=== PATIENT | male | born 1970 | race Caucasian/White ===

== ENCOUNTER 2022-03-02 09:39 | Emergency (ER) | payer BC ==
--- OUTSIDE RECORDS SUMMARY | 2022-03-02 09:43 | XMS REPORT | Continuity of Care Document ---
:1970 Author Organization [facility] t Address [address] [place] [address] Care Team Providers Name Role Phone Jimbo Olvera MD Primary Care Physician Kimberly JIMENEZ Attending Clinician Unavailable Aditya Sanchez MD Attending Clinician Jake Bazzi MD Attending Clinician Chelsey MCCLURE Attending Clinician Lui BOBBY Attending Clinician Unavailable Jose C JIMENEZ Attending Clinician Unavailable Kris Thomas MD Attending Clinician Tika MCCLURE, NDustin Attending Clinician Michael MCCLURE, Tamiko Attending Clinician Jimbo Olvera MD Attending Clinician ED Admitting Clinician Unavailable TIKA Admitting Clinician Unavailable Payers Payer Name Policy Type Policy Number Effective Date Expiration Date S ource Problems Condition Condition Condition Status Onset Resolution Last Treating Co mments Source Name Details Category Date Date Treatment Clinician Date Colon Colon Disease Active Overview: Method i cancer cancer [address] screening screening 00:00: g of this H ospita 00 note l might be different from the original. Added automatic ally from request for surgery [id number] Gastroesop Gastroesop Disease Active Overview : Methodi hageal hageal 8-[address] reflux reflux 00:00: g of this Hospita disease disease 00 note l without without might be esophagiti esophagiti different s s from the original. Added automatic ally from request for surgery [id number] DKA DKA Disease Active 2021-0 Methodi (diabetic (diabetic 3-30 st ketoacidos ketoacidos 00:00: Ho spita es) es) 00 l COVID-19 COVID-19 Disease Active Metho di virus virus 3 st detected detected 00:00: Hospit a 00 l Metabolic Metabolic Disease Active Met hodi acidosis acidosis 3 st 00:00: Hospita 00 l S/P S/P Disease Active [facility] arthroscop arthroscop 2 st y of left y of left 00:00: Hosp [facility] knee knee 00 l Follow-up Follow-up Disease Active Met hodi examinatio examinatio 2 st n after n after 00:00: Hospita orthopedic orthopedic 00 l surgery surgery Obesity Obesity Disease Active Methodi (BMI (BMI 01-02 st 31.16) 31.16) 00:00: Hospita 00 l Acute pain Acute pain Disease Active M ethodi of left of left 130 st knee knee 00:00: Hospita 00 l Acute Acute Disease Active Methodi internal internal [address] derangemen derangemen 00:00: Ho spita t of left t of left 00 l knee knee Acute Acute Disease Active Methodi medial medial 1 meniscus meniscus 00:00: Hospit a tear of tear of 00 l left knee left knee Rotator Rotator Disease Active Methodi cuff cuff 8 st tendonitis tendonitis 00:00: Ho spita , right , right 00 l Adhesive Adhesive Disease Active Metho di capsulitis capsulitis 07-03 st of right of right 00:00: Hospit a shoulder shoulder 00 l Allergies, Adverse Reactions, Alerts Allergy Allergy Status Severity Reaction(s) Onset Inactive Treating Comm ents Source Name Type Date Date Clinician [place] Active Rash Method i tin ty to 8-13 st adverse 00:00: Hospita reaction 00 l s to drug Family History Family Member Diagnosis Comments Start Date Stop Date Source Natural father [facility] Natural mother COPD [facility] mother Cancer [facility] mother Diabetes [facility] Social History Social Habit Start Date Stop Date Quantity Comments Source History of tobacco Cigarette Smoker [facility] use Hospital History SDOH [facility] Alcohol Frequency Hospita l History SDOH [facility] Alcohol Std Drinks Hospit al History SDOH [facility] Alcohol Binge Hospital Alcohol intake 2021-09-18 2021-09-18 Current drinker [facility] 00:00:00 00:00:00 of alcohol Hospital (finding) Alcohol Comment 2018-12-21 2018-12-21 socially [facility] 00:00:00 00:00:00 Hospital Cigarettes smoked 2018-07-03 2018-07-[address] current (pack per 00:00:00 00:00:00 Hospita l day) - Reported Cigarette 2018-07-03 2018-07-03 [facility] pack-years 00:00:00 00:00:00 Hospital Tobacco use and 2018-07-03 2018-07-03 Former smokeless Met hodist exposure 00:00:00 00:00:00 tobacco user Hospital Sex Assigned At [birth year] [facility] 00:00:00 00:00:00 Hospital Smoking Status Start Date Stop Date Source Ex-smoker 2018-07-03 00:00:00 2018-07-03 00:00:00 [facility] Medications Ordered Filled Start Stop Current Ordering Indication Dosage Frequency Signature Comments Components Source Medication Medication Date Date Medication? Clinician (SIG) Name Name fexofenadin 2020-11 Yes 60mg QD Take 60 mg Methodi e (ROSE) 1-[address] 60 MG 08:27: daily. Hospita tablet 50 l omeprazole 2020-11 Yes TAKE 1 Metho di (PriLOSEC) 1-[address] 40 MG 08:27: MOUTH Hospita capsule 50 EVERY DAY l rosuvastati 2020-11 Yes TAKE 1 Meth corky n (CRESTOR) 1-[address] 5 mg tablet 08:27: MOUTH Hospi ta 50 EVERY DAY l insulin 2020-11 Yes as Methodi GLARGINE -[address] (Lantus 08:27: Hospita Solostar 50 l U-100 Insulin) 100 unit/mL injection (pen) MULTIVITAMI 2020-11 Yes Method i N ORAL -12 st 08:27: Hospita 50 l omega 2020-11 Yes 1 capsule Methodi 3-dha-epa-f 1-12 st carmen oil 08:27: Hospita (Fish Oil) 50 l 1,000 mg (120 mg-180 mg) capsule polyethylen 2020- No 3{packe Take 3 Methodi e glycol 06-16 t} packets by st (Plenvu) 00:00: 04:59 mouth once Ho spita 140-9-5.2 00 :00 for 1 l gram powder dose. in packet, sequential solution (RESTRICTED ) insulin Yes as Methodi LISPRO 4-[address] (HumaLOG 00:00: Hospita KwikPen 00 l Insulin) 200 unit/mL (3 mL) insulin pen subcutaneou s pen insulin 2020- No 20U QD Inject 20 Meth corky GLARGINE 3-30 05-[address] (Lantus 00:00: 04:59 under the Hosp [facility]ney Solostar 00 :00 skin l U-100 nightly Insulin) for 60 100 unit/mL days. injection (pen) TRULICITY 2020- No Methodi 0.75 mg/0.5 118 03-30 st mL pen 00:00: 00:00 Hospita injector 00 :00 l INVOKANA 2020- No Methodi 300 mg 07-0230 st tablet 00:00: 00:00 Hospita 00 :00 l omeprazole 2020- No Method i (PriLOSEC) 06-25 st 40 MG 00:00: 00:00 Hospita capsule 00 :00 l naproxen 2020- No Methodi (NAPROSYN) 06-12 st 500 MG 00:00: 00:00 Hospita tablet 00 :00 l metFORMIN Yes 1000mg Q.5D Take 1,000 Methodi (GLUCOPHAGE 8-[address] ) 1,000 mg 00:00: mouth 2 Hosp [facility] tablet 00 (two) l times a day with meals. Vital Signs Vital Name Observation Time Observation Value Comments Source Systolic blood 2021-09-17 14:03:00 116 mm[Hg] Method [facility] Hospital pressure Diastolic blood 2021-09-17 14:03:00 68 mm[Hg] [facility] Hospital pressure Heart rate 2021-09-17 14:03:00 67 /min [facility] Hospital Respiratory rate 2021-09-17 14:03:00 24 /min [facility] Hospital Oxygen saturation in 2021-09-17 14:03:00 98 /min [facility] Arterial blood by Pulse oximetry Body temperature 2021-09-17 13:48:00 36.39 Eileen Meth [facility] Body height 2021-09-17 12:48:00 175.3 cm [facility] Body weight 2021-09-17 12:48:00 99.791 kg [facility] BMI 2021-09-17 12:48:00 32.49 kg/m2 [facility] Procedures Procedure Date / Time Performing Source Performed Clinician SURGICAL PATHOLOGY REQUEST 2021-09-17 Bereket Sanchez Dc [facility]odist 15:58:00 Hospital COLONOSCOPY 2021-09-17 Bereket Sanchez [facility] 13:27:00 Hospital ESOPHAGOGASTRODUODENOSCOPY (EGD) 2021-09-17 Bereket Sanchez [facility] 13:27:00 [facility] POC GLUCOSE 2021-09-17 Bereket Sanchez [facility] 12:55:00 Hospital COVID-19 QUALITATIVE RT-PCR 2021-09-15 Bereket Sanchez [facility]ist 15:07:00 Hospital POC GLUCOSE 2021-02-02 Altaie, Saif KDustin [facility] 16:00:00 Hospital POC GLUCOSE 2021-02-02 Altaie, Saif KDustin [facility] 13:04:00 Hospital POC GLUCOSE 2021-02-02 Altaie, Saif KDustin [facility] 01:31:00 Hospital POC GLUCOSE 2021-02-01 Altaie, Saif KDustin [facility] 22:03:00 Hospital POC GLUCOSE 2021-02-01 Altaie, Saif KDustin [facility] 16:05:00 Hospital POC GLUCOSE 2021-02-01 Alte, Saif KDustin [facility] 12:35:00 Hospital HC COMPLETE BLD COUNT W/AUTO DIFF 2021-02-01 Katie Isidro 09:00:00 [facility] COMPREHENSIVE METABOLIC PANEL 2021-02-01 Ktaie Isidro 09:00:00 [facility] MAGNESIUM LEVEL 2021-02-01 Katie Isidro 09:00:00 [facility] PHOSPHORUS LEVEL 2021-02-01 Katie Isidro 09:00:00 [facility] IONIZED CALCIUM 2021-02-01 Katie Isidro [facility] 09:00:00 [facility] ESTIMATED GFR 2021-02-01 Katie Isidro [facility] 09:00:00 [facility] POC GLUCOSE 2021-01-31 Leah Rodriguez [facility] 22:05:00 Hospital POC GLUCOSE 2021-01-31 eCsar Villela 19:33:00 N. Hospital BASIC METABOLIC PANEL 2021-01-31 Katie Isidro [facility] 19:10:00 [facility] ESTIMATED GFR 2021-01-31 Katie Isidro [facility] 19:10:00 [facility] POC GLUCOSE 2021-01-31 Cesar Villela 18:16:00 . [facility] POC GLUCOSE 2021-01-31 Cesar Villela 17:05:00 . [facility] POC GLUCOSE 2021-01-31 Cesar Villela 16:32:00 . [facility] POC GLUCOSE 2021-01-31 Cesar Villela 15:44:00 . [facility] COVID-19 ANTI-SPIKE IGG ANTIBODY 2021-01-31 Katie Isidro [facility] TITER 14:55:00 [facility] DKA ELECTROLYTES AND GLUCOSE TEST 2021-01-31 Yanci Thomas 14:10:00 [facility] POC GLUCOSE 2021-01-31 Leah Rodriguez [facility] 13:49:00 Hospital POC GLUCOSE 2021-01-31 Leah Rodriguez [facility] 12:26:00 Hospital POC GLUCOSE 2021-01-31 Cesar Villela 10:58:00 . [facility] VENOUS BLOOD GAS 2021-01-31 Michelle Kimbrough [facility] 10:50:00 [facility] POC GLUCOSE 2021-01-31 Cesar Villela 09:57:00 . [facility] DKA ELECTROLYTES AND GLUCOSE TEST 2021-01-31 Yanci Thomas 09:00:00 [facility] POC GLUCOSE 2021-01-31 Cesar Villela 08:07:00 [facility] DKA ELECTROLYTES AND GLUCOSE TEST 2021-01-31 Yanci Thomas 07:08:00 [facility] POC GLUCOSE 2021-01-31 Cesar Villela 06:33:00 . Hospital POC GLUCOSE 2021-01-31 Cesar V[place]la 05:27:00 Hospital LACTIC ACID LEVEL, SEPSIS - NOW 2021-01-31 Yanci Thomas AND REPEAT 2X EVERY 3 HOURS 05:17:00 [facility] ital DKA ELECTROLYTES AND GLUCOSE TEST 2021-01-31 Yanci Thomas 05:17:00 [facility] COMPREHENSIVE METABOLIC PANEL 2021-01-31 Michelle Kimbrough thodist 05:17:00 [facility] ESTIMATED GFR 2021-01-31 iMchelle Kimbrough 05:17:00 [facility] MAGNESIUM LEVEL 2021-01-31 Katie Isidro 05:17:00 [facility] POC GLUCOSE 2021-01-31 Cesar Villela 04:29:00 N. Hospital TROPONIN 2021-01-31 Alden Rivera 04:24:00 [facility] DKA ELECTROLYTES AND GLUCOSE TEST 2021-01-31 Yanci Thomas 04:24:00 [facility] COVID-19 QUALITATIVE RT-PCR 2021-01-31 Inessa Thomas 04:07:00 [facility] URINE CULTURE 2021-01-31 Sukhjinder Ribera 04:06:00 [facility] URINALYSIS SCREEN AND MICROSCOPY, 2021-01-31 Sukhjinder Ribera WITH REFLEX TO CULTURE 04:06:00 [facility] POC GLUCOSE 2021-01-31 Cesar Villela 03:14:00 Hospital LIPID PANEL 2021-01-31 Yanci Thomas 02:15:00 [facility] LACTIC ACID LEVEL, SEPSIS - NOW 2021-01-31 Yanci Thomas AND REPEAT 2X EVERY 3 HOURS 02:15:00 [facility] ital DKA ELECTROLYTES AND GLUCOSE TEST 2021-01-31 Yanci Thomas 02:15:00 [facility] HEMOGLOBIN A1C 2021-01-31 Yanci Thomas 02:15:00 [facility] MAGNESIUM LEVEL 2021-01-31 Yanci Thomas 02:15:00 [facility] PHOSPHORUS LEVEL 2021-01-31 Yanci Thomas 02:15:00 [facility] BLOOD CULTURE, AEROBIC & ANAEROBIC 2021-01-31 Yanci Thomas 02:00:00 [facility] TROPONIN 2021-01-31 Nicole, Alden Pete 02:00:00 [facility] LACTIC ACID LEVEL, SEPSIS - NOW 2021-01-31 Yanci Thomas AND REPEAT 2X EVERY 3 HOURS 02:00:00 [facility] ital POC GLUCOSE 2021-01-31 Leah Rodriguez 02:00:00 Hospital ARTERIAL BLOOD GAS 2021-01-31 Amadeo Herron 01:38:00 Hospital BLOOD CULTURE, AEROBIC & ANAEROBIC 2021-01-31 Yanci Thomas 01:19:00 [facility] CT HEAD WO CONTRAST 2021-01-31 DalyoaYanci 00:11:16 [facility] ECG ED PRELIMINARY INTERPRETATION 2021-01-31 Yanci Thomas 00:05:30 [facility] XR CHEST 1 VW PORTABLE 2021-01-30 Nicole, Alden Pete 23:12:21 [facility] COMPREHENSIVE METABOLIC PANEL 2021-01-30 Alden Rivera thodist 21:52:00 [facility] HC COMPLETE BLD COUNT W/AUTO DIFF 2021-01-30 Nicole, Alden Pete 21:52:00 [facility] LIPASE LEVEL 2021-01-30 Nicole, Alden Pete 21:52:00 [facility] PROTHROMBIN TIME WITH INR 2021-01-30 Nicole, Alden Calderon ist 21:52:00 [facility] PARTIAL THROMBOPLASTIN TIME (PTT) 2021-01-30 Nicole, Alden Pete 21:52:00 [facility] B NATRIURETIC PEPTIDE 2021-01-30 Nicole, Alden Pete 21:52:00 [facility] TROPONIN 2021-01-30 Nicole, Alden Pete 21:52:00 [facility] ESTIMATED GFR 2021-01-30 Nicole, Alden Pete 21:52:00 [facility] BETA HYDROXYBUTYRATE 2021-01-30 Sukhjinder Ribera 21:52:00 [facility] ECG 12-LEAD 2021-01-30 Alden Rivera [facility] [facility] 21:46:04 [facility] XR CHEST 2 VW 2021-01-29 Gilberto Olvera 14:37:13 [facility] Plan of Care Planned Activity Planned Date Details Comments Source Future Scheduled 2021-12-07 DIABETES: RETINAL EYE [facility] Test 23:20:02 EXAM [code = DIABETES: RETINAL EYE EXAM] Future Scheduled 2021-12-07 DIABETIC FOOT EXAM [facility] Test 23:20:02 [code = DIABETIC FOOT EXAM] Future Scheduled 2021-12-07 URINE MICROALBUMIN [facility] Test 23:20:02 [code = URINE MICROALBUMIN] Future Scheduled 2021-12-07 Hepatitis C screening [facility] Test 23:20:02 (procedure) [code = 294336079] Future Scheduled 2021-12-[address] [facility] Test 23:20:02 [code = COLONOSCOPY SCREENING] Future Scheduled 2021-12-07 SHINGLES VACCINES (#1) [facility] Test 23:20:02 [code = SHINGLES VACCINES (#1)] Future Scheduled 2021-12-07 INFLUENZA VACCINE [facility] Test 23:20:02 [code = INFLUENZA VACCINE] Future Scheduled 2021-12-07 COVID-19 VACCINE (3 - Me [facility] Test 23:20:02 Booster for Moderna series) [code = COVID-19 VACCINE (3 - Booster for Moderna series)] Encounters Start End Encounter Admission Attending Care Care Encounter Source Date/Time Date/Time Type Type Clinicians Facility Department ID 2021-09-20 2021-09-20 Telephone Kimberly, 1.2.840.1 [id number] Methodi 00:00:00 00:00:[address] 3.430.2.7 Hospit a .3.370915 l .8 2021-09-17 2021-09-17 Surgery Sanchez, 1.2.840.1 [id number] Methodi 07:30:00 08:15:[address] [place] [address] Hasan 3.430.2.7 Hospit a .3.092871 l .8 2021-09-17 2021-09-17 [facility], 1.2.840.1 [id number] Methodi 06:22:00 08:15:00 Encounter [place] [address]94.1.[address] Aditya 3.430.2.7 Hospit a .3.218022 l .8 2021-09-17 2021-09-17 Anesthesia Rosemary Bazzi 1.2.840.1 [id number] Methodi 07:27:00 07:49:00 Event Josue Barbosa 69901.1.[address] 3.430.2.7 Hospit a .3.600976 l .8 2021-09-17 2021-09-17 Travel 1.2.840.1 1.2.458.367 [id number] Methodi 00:00:00 00:00:[address] 3.430.2.7 0.2.7.3.698 Ho spita .3.108623 084.8 l .8 2021-09-15 2021-09-15 Telephone Sanchez, 1.2.840.1 [id number] Methodi 00:00:00 00:00:[address] [place] [address] Aditya 3.430.2.7 Hospit a .3.292551 l .8 2021-09-15 2021-09-15 Travel 1.2.840.1 1.2.421.605 [id number] Methodi 00:00:00 00:00:[address] 3.430.2.7 0.2.7.3.698 Ho spita .3.996128 084.8 l .8 2021-08-30 2021-08-30 Prep for Lui, 1.2.840.1 [id number] Methodi 00:00:00 00:00:00 Surgery [place] 66963.1.[address] 3.430.2.7 Hospit a .3.238547 l .8 2021-08-30 2021-08-30 Travel 1.2.840.1 1.2.714.648 0417 [id number] Methodi 00:00:00 00:00:[address] 3.430.2.7 0.2.7.3.698 Ho spita .3.377253 084.8 l .8 2021-08-05 2021-08-05 Telephone Kimberly, 1.2.840.1 [id number] Methodi 00:00:00 00:00:[address] 3.430.2.7 Hospit a .3.347660 l .8 2021-07-08 2021-07-08 Telephone Kimberly, 1.2.840.1 [id number] 2099 [id number] Methodi 00:00:00 00:00:[address] 3.430.2.7 Hospit a .3.801727 l .8 2021-06-16 2021-06-16 Office Sanchez, 1.2.840.1 [id number] Methodi 08:46:09 09:16:09 Visit [place] [address]16.1.[address] Hasan 3.430.2.7 Hospit a .3.141796 l .8 2021-06-16 2021-06-16 Prep for Harris, 1.2.840.1 [id number] Methodi 00:00:00 00:00:00 Surgery Angie 92025.1.[address] 3.430.2.7 Hospit a .3.698169 l .8 2021-06-16 2021-06-16 Documentat Harris, 1.2.840.1 [id number] Methodi 00:00:00 00:00:00 ion Angie 10924.1.[address] 3.430.2.7 Hospit a .3.727377 l .8 2021-06-16 2021-06-16 Travel 1.2.840.1 1.2.483.678 0444 [id number] Methodi 00:00:00 00:00:[address] 3.430.2.7 0.2.7.3.698 Ho spita .3.711482 084.8 l .8 2021-05-19 2021-05-19 Transcribe Sanchez, 1.2.840.1 [id number] [id number] Methodi 00:00:00 00:00:00 Orders [place] 43936.1.[address] Hasan 3.430.2.7 Hospit a .3.730033 l .8 2021-05-19 2021-05-19 Telephone Woodall, 1.2.840.1 [id number] Methodi 00:00:00 00:00:[address] 3.430.2.7 Hospit a .3.074806 l .8 2021-01-30 2021-02-02 [facility] .1 [id number] Methodi 16:30:00 14:08:00 Encounter Cesar Villela N. 73747.1.[address] Altdebora, Leah K. 3.430.2.7 Hospita .3.575716 l .8 2021-01-30 2021-01-30 Travel 1.2.840.1 1.2.515.654 [id number] [id number] Methodi 00:00:00 00:00:[address] 3.430.2.7 0.2.7.3.698 Ho spita .3.958668 084.8 l .8 2021-01-28 2021-01-28 Travel 1.2.840.1 1.2.147.182 1777 [id number] Methodi 00:00:00 00:00:[address] 3.430.2.7 0.2.7.3.698 Ho spita .3.758670 084.8 l .8 2021-01-28 2021-01-28 Transcribe Wade, 1.2.840.1 [id number] Methodi 00:00:00 00:00:00 Orders Gilberto 05513.1.[address] Choi 3.430.2.7 Hospit a .3.760898 l .8 Results Test Description Test Time Test Comments Results Result Comments Source Surgical pathology request 2021-09-20 16:33:48 Test Item Value Reference Range Interpretation Comme nts Case number (test code = 0534517) [id number] Surgical pathology report (test code = See link below for PDF Lab R eport 2253) Result status (test code = 7473445) This is Final Report for [id number] [facility] [id number] 12:58:00 Test Item Value Reference Range Interpretation Comments POC glucose (test code 197 mg/dL 65-100 H Opera tor Name: = [id number]) Helen DeBarge Device ID: [id number] Lab Interpretation Abnormal (test code = 27123-2) [facility] 12 [id number] 03:36:50 Test Item Value Reference Range Interpretation Comments Ventricular rate (test code = 253) Atrial rate (test code = 255) CO interval (test code = 266) QRSD interval (test code = 260) QT interval (test code = 264) QTC interval (test code = 265) P axis 1 (test code = 267) QRS axis 1 (test code = 268) T wave axis (test code = 270) EKG impression (test Sinus tachycardia-Left code = 273) anterior fascicular block-Septal infarct (cited on or before 21-DEC-2018)-Abnormal ECG-In automated comparison with ECG of 21-DEC-2018 15:17,-No significant change was found- [facility] electrolytes and glucose [id number] 14:25:24 Test Item Value Reference Range Interpretation Comments Sodium, whole blood See_Comment L [Automa shorty message] (test code = 2947-0) The s tem which generated this result transmit shorty reference range : 135 - 148 mEq/L. Th e reference range was not used to interpret this result as normal/abnormal . Potassium, whole blood See_Comment [Aut omated message] (test code = 6298-4) The sys tem which generated this result transmit shorty reference range : 3.5 - 5.0 mEq/L. Th e reference range was not used to interpret this result as normal/abnormal . Chloride, whole blood See_Comment [Auto mated message] (test code = 2069-3) The sys tem which generated this result transmit shorty reference range : 98 - 112 mEq/L. Th e reference range was not used to interpret this result as normal/abnormal . CO2 calculated, whole See_Comment L [Auto mated message] blood (test code = The syste m which ) generated this result transmit shorty reference range : 24 - 31 mEq/L. The reference range was not used to interpret this result as normal/abnormal . Anion gap, whole blood See_Comment [Aut omated message] (test code = 29649-7) The sy stem which generated this result transmit shorty reference range : 5 - 20 mEq/L. The reference range was not used to interpret this result as normal/abnormal . Glucose, whole blood 161 mg/dL 65-99 H (test code = 2339-0) Lab Interpretation (test Abnormal code = 33586-9) [id number] 05:11:13 Test Item Value Reference Range Interpretation Comments Urine culture (test SEE COMMENT Bacteriu moreno screen code = 4781839) negative. [facility] ED Preliminary Interpretation - Not an [id number] 00:05:30 Test Item Value Reference Range Interpretation Comments BELLA (test code = BELLA) Vic Thomas MD 01/31/2021 3:23 [facility] ED Preliminary Interpretation - Not an OrderPerformed by: Vic Thomas MDAuthorized by: Vic Thomas MD ECG reviewed by ED Physician in the absence of a outcome analyst: yes Interpretation: Interpretation: abnormal Rate: ECG rate: 121 ECG rate assessment: tachycardic Rhythm: Rhythm: sinus tachycardia Ectopy: Ectopy: none QRS: QRS axis: Left QRS intervals: NormalConduction: Conduction: abnormal Abnormal conduction: non-specific intraventricular conduction delay ST segments: ST segments: NormalT waves: T waves: normal Lab Interpretation Abnormal (test code = 57070-2) [facility]
[2022-03-02] MEDS ORDERED: KETOROLAC 30 MG/ML INJ ONE (10:04)
--- NOTE | 2022-03-02 11:08 | RAD REPORT ---
EXAM DESCRIPTION: RAD - Foot Left 3 View - 03/02/2022 10:56 am CLINICAL HISTORY: foot pain, calcaneal COMPARISON: No comparisons FINDINGS/IMPRESSION: No acute fracture. No malalignment. Calcaneal spurring.
--- NOTE | 2022-03-02 11:18 | EDPHYS ---
Physician Documentation [facility] Name: Alec Link Age: 52 yrs Sex: Male : 1970 Arrival Date: 03/02/2022 Time: 09:44 Bed 5 Private MD: ED Physician Yousif Moreno HPI: 03/02 09:50 This 52 yrs old Male presents to ER via Ambulatory with complaints of Foot Injury. jmm 09:50 The patient presents with pain. Onset: The symptoms/episode began/occurred gradually, jmm last night. Modifying factors: The symptoms are alleviated by nothing. the symptoms are aggravated by movement, weight bearing. Associated signs and symptoms: Pertinent negatives fever. The patient has not experienced similar symptoms in the past. Historical: - Allergies: 09:55 No Known Allergies; ss - PMHx: 09:55 Diabetes mellitus; ss - PSHx: 09:55 ear sx; ss ROS: 09:50 Constitutional: Negative for fever, chills, and weight loss, Cardiovascular: Negative jmm for chest pain, palpitations, and edema, Respiratory: Negative for shortness of breath, cough, wheezing, and pleuritic chest pain, Abdomen/GI: Negative for abdominal pain, nausea, vomiting, diarrhea, and constipation. 09:50 MS/extremity: Positive for pain. 09:50 All other systems are negative. Exam: 09:50 Constitutional: This is a well developed, well nourished patient who is awake, alert, jmm and in no acute distress. Head/Face: atraumatic. Eyes: EOMI, no conjunctival erythema appreciated ENT: Moist Mucus Membranes Neck: Trachea midline, Supple Chest/axilla: Normal chest wall appearance and motion. Cardiovascular: Regular rate and rhythm. No edema appreciated Respiratory: Normal respirations, no respiratory distress appreciated Abdomen/GI: Non distended, soft Back: Normal ROM Skin: General appearance color normal 09:50 Musculoskeletal/extremity: left calcaneal pain on palpation, compartments are soft, full dorsalis pulse, NVI. 09:50 Skin: Appearance: Color: normal in color. 09:50 Neuro: Motor: is normal. 09:50 Psych: Behavior/mood is pleasant, cooperative. Vital Signs: 09:54 BP 161 / 92; Pulse 72; Resp 16; Temp 98.4(O); Pulse Ox 100% on R/A; Weight 104.33 kg; ss Height 5 ft. 9 in. (175.26 cm); Pain 0/10; 10:05 BP 179 / 89; Pulse 68; Resp 18; Pulse Ox 100% on R/A; kj1 10:53 BP 154 / 78; Pulse 65; Resp 16; Pulse Ox 99% ; vg1 09:54 Body Mass Index 33.96 (104.33 kg, 175.26 cm) ss 09:54 At worse a 10/10 when standing ss MDM: 09:50 Patient medically screened. [facility] 11:16 Data reviewed: vital signs, nurses notes. Counseling: I had a detailed discussion with [facility] the patient and/or guardian regarding: the historical points, exam findings, and any diagnostic results supporting the discharge/admit diagnosis, radiology results, the need for outpatient follow up, to return to the emergency department if symptoms worsen or persist or if there are any questions or concerns that arise at home. 03/02 09:53 Order name: Foot Left 3 View XRAY; Complete Time: 11:10 [facility] Administered Medications: 10:05 Drug: Ketorolac 30 mg Route: IM; Site: right deltoid; vg1 10:52 Follow up: Response: No adverse reaction vg1 Disposition: 13:25 Co-signature as Attending Physician, Yousif Moreno MD I agree with the assessment and kdr plan of care. Disposition Summary: 03/02/22 11:17 Discharge Ordered Location: Home [facility] Condition: Stable [facility] Diagnosis - Calcaneal spur, left foot [facility] Followup: [facility] - With: Cuong Laws DPM - When: 2 - 3 days - Reason: Recheck today's complaints, Continuance of care, Re-evaluation by your physician Discharge Instructions: - Discharge Summary Sheet [facility] - Heel Spur [facility] Forms: - Medication Reconciliation Form [facility] - Thank You Letter [facility] - Antibiotic Education [facility] - Prescription Opioid Use [facility] Prescriptions: - Diclofenac Sodium 75 mg Oral Tablet Sustained Release - take 1 tablet by ORAL route 2 times per day; 30 tablet; Refills: 0, Product [facility] Selection Permitted Signatures: Dispatcher [employer] Yousif Ferrara MD MD kdr Mickail, Joel, PA PA Nazanin Cassidy RN RN Xenia Carrasco RN RN vg1 Corrections: (The following items were deleted from the chart) 11:38 11:10 Kris cotton. jessica vg1
--- NOTE | 2022-03-02 11:18 | ER ---
Nurse's Notes [facility] Name: Alec Link Age: 52 yrs Sex: Male : 1970 Arrival Date: 03/02/2022 Time: 09:44 Bed 5 Private MD: Diagnosis: Calcaneal spur, left foot Presentation: 03/02 09:54 Chief complaint: Patient states: Pain to bottom of L heel that began last night, is ss worse this morning. Denies injury. Coronavirus screen: Client denies travel out of the [place] in the last 14 days. Ebola Screen: Patient denies exposure to infectious person. Patient denies travel to an Ebola-affected area in the 21 days before illness onset. Initial Sepsis Screen: Does the patient meet any 2 criteria? No. Patient's initial sepsis screen is negative. Does the patient have a suspected source of infection? No. Patient's initial sepsis screen is negative. Risk Assessment: Do you want to hurt yourself or someone else? Patient reports no desire to harm self or others. Onset of symptoms was March 01, 2022. 09:54 Method Of Arrival: Ambulatory ss 09:54 Acuity: TONE 4 ss Historical: - Allergies: 09:55 No Known Allergies; ss - PMHx: 09:55 Diabetes mellitus; ss - PSHx: 09:55 ear sx; ss Screenin:55 Abuse screen: Denies threats or abuse. Nutritional screening: No deficits noted. vg1 Tuberculosis screening: No symptoms or risk factors identified. Fall Risk No fall in past 12 months (0 pts). No secondary diagnosis (0 pts). No IV (0 pts). Ambulatory Aid- None/Bed Rest/Nurse Assist (0 pts). Gait- Normal/Bed Rest/Wheelchair (0 pts) Mental Status- Oriented to own ability (0 pts). Total Aldana Fall Scale indicates No Risk (0-24 pts). Assessment: 09:55 General: Appears uncomfortable, Behavior is calm, cooperative. Pain: Complains of pain vg1 in left foot Pain currently is 0 out of 10 on a pain scale. at worst was 10 out of 10 on a pain scale. Pain began 1 day ago. Neuro: Level of Consciousness is awake, alert, obeys commands, Oriented to person, place, time, situation. Cardiovascular: Patient's skin is warm and dry. Pulses are palpable in left dorsalis pedis artery. Respiratory: Airway is patent Respiratory effort is even, unlabored. GI: No signs and/or symptoms were reported involving the gastrointestinal system. : No signs and/or symptoms were reported regarding the genitourinary system. EENT: No signs and/or symptoms were reported regarding the EENT system. Derm: Skin is intact, is healthy with good turgor. Musculoskeletal: Circulation, motion, and sensation intact. 10:52 Reassessment: Patient appears in no apparent distress at this time. No changes from vg1 previously documented assessment. Patient and/or family updated on plan of care and expected duration. Pain level reassessed. Patient is alert, oriented x 3, equal unlabored respirations, skin warm/dry/pink. 11:38 Reassessment: Patient appears in no apparent distress at this time. Patient and/or vg1 family updated on plan of care and expected duration. Pain level reassessed. Patient is alert, oriented x 3, equal unlabored respirations, skin warm/dry/pink. Vital Signs: 09:54 BP 161 / 92; Pulse 72; Resp 16; Temp 98.4(O); Pulse Ox 100% on R/A; Weight 104.33 kg; ss Height 5 ft. 9 in. (175.26 cm); Pain 0/10; 10:05 BP 179 / 89; Pulse 68; Resp 18; Pulse Ox 100% on R/A; kj1 10:53 BP 154 / 78; Pulse 65; Resp 16; Pulse Ox 99% ; vg1 09:54 Body Mass Index 33.96 (104.33 kg, 175.26 cm) ss 09:54 At worse a 10/10 when standing ED Course: 09:44 Patient arrived in ED. ds1 09:45 Thomas Brown PA is PHCP. jmm 09:45 Yousif Moreno MD is Attending Physician. jmm 09:48 Xenia Das, BHARATHI is Primary Nurse. vg1 09:49 Arm band placed on Patient placed in an exam room, on a stretcher. ll1 09:55 Triage completed. ss 09:55 Patient has correct armband on for positive identification. Bed in low position. Call 1 light in reach. Side rails up X 1. Adult w/ patient. 09:55 No provider procedures requiring assistance completed. vg1 10:58 Foot Left 3 View XRAY In Process Unspecified. EDMS 11:17 Cuong Laws DPM is Referral Physician. [facility] 11:39 Patient did not have IV access during this emergency room visit. vg1 Administered Medications: 10:05 Drug: Ketorolac 30 mg Route: IM; Site: right deltoid; vg1 10:52 Follow up: Response: No adverse reaction vg1 Outcome: 11:17 Discharge ordered by MD. [facility] 11:39 Discharged to home ambulatory, with family. vg1 11:39 Condition: good 11:39 Discharge instructions given to patient, Instructed on discharge instructions, follow up and referral plans. medication usage, Demonstrated understanding of instructions, follow-up care, medications, Prescriptions given X 1. 11:39 Patient left the ED. vg1 Signatures: Dispatcher [employer] EDMS Thomas Brown PA PA jmPat Baptiste ds1 Nazanin Cutler RN RN ss Mia Murrell kj1 Xenia Das RN RN vg1 Kim Fuentes, BHARATHI RN ll1 Corrections: (The following items were deleted from the chart) 10:56 09:54 Chief complaint: Patient states: Pain to bottom of R heel that began last night, ss is worse this morning. Denies injury ss
[2022-03-02 11:43] VITALS: TEMP 98.4
[2022-03-02 11:46] VITALS: BP 154/78; O2SAT 99
== END 2022-03-02 11:39 | disposition home or self-care (01) ==
LOC: ER 09:39
DX: M77.32 Calcaneal spur, left foot (principal); E11.9 Type 2 diabetes mellitus without complications